=== PATIENT | male | born 1985 | race African-American/Black ===

== ENCOUNTER 2016-10-24 05:52 | Emergency (ER) | payer SELFPAY ==
[~2016-10-24] VITALS: Ht 177.8 cm; Wt 79.0 kg
[2016-10-24 05:54] VITALS: BP 117/69
[2016-10-24] MEDS ORDERED: TETANUS, DIPHTHERIA, PERTUSSIS VAC/PF 0.5ML (>7YR OLD) IM ONE (07:45)
[2016-10-24] MEDS ORDERED: BACITRACIN ZINC OINT UDPKT TOP ONE (09:15)
== END 2016-10-24 10:37 | disposition home or self-care (01) ==
LOC: ER 05:52
DX: S01.21XA Laceration without foreign body of nose, initial encounter (principal); S61.210A Laceration without foreign body of right index finger without damage to nail, initial encounter; Y04.2XXA Assault by strike against or bumped into by another person, initial encounter; Y93.89 Activity, other specified; Y92.89 Other specified places as the place of occurrence of the external cause; Y99.8 Other external cause status
CPT/HCPCS: 12011; 90471; 90715; 99283

== ENCOUNTER 2019-12-04 07:10 | Emergency (ER) | payer BC ==
[~2019-12-04] VITALS: Ht 177.8 cm; Wt 79.0 kg
[2019-12-04] MEDS ORDERED: AZITHROMYCIN 500 MG TABLET PO ONE (08:00)
[2019-12-04] MEDS ORDERED: CEFTRIAXONE SODIUM 250 MG/VIAL IM ONE (08:00)
[2019-12-04 08:29] LABS: CLARITY URINE CLOUDY (CLEAR); COLOR URINE YELLOW (YELLOW); KETONES URINE TRACE (NEGATIVE); LEUKOCYTE ESTERASE URINE 3+ (NEGATIVE); NITRITE URINE NEGATIVE (NEGATIVE); OCCULT BLOOD URINE 1+ (NEGATIVE); PROTEIN URINE 1+ (NEGATIVE)
[2019-12-04 09:34] VITALS: BP 125/60
[2019-12-07 04:11] LABS: NEISSERIA GONORRHOEAE NAA Positive (Negative)
== END 2019-12-04 09:35 | disposition home or self-care (01) ==
LOC: ER 07:44
DX: N34.2 Other urethritis (principal); I10 Essential (primary) hypertension
CPT/HCPCS: 81003; 87086; 87491; 87591; 93005; 96372; 99284; J0696

== ENCOUNTER 2019-12-11 14:03 | Emergency (ER) | payer BC ==
[~2019-12-11] VITALS: Ht 177.8 cm; Wt 79.5 kg
[2019-12-11 14:22] VITALS: BP 116/76
== END 2019-12-11 16:25 | disposition home or self-care (01) ==
LOC: ER 14:07
DX: A54.9 Gonococcal infection, unspecified (principal); A64 Unspecified sexually transmitted disease; I10 Essential (primary) hypertension; Z98.890 Other specified postprocedural states
CPT/HCPCS: 99281

== ENCOUNTER 2020-01-08 14:51 | Emergency (ER) | payer BC ==
[~2020-01-08] VITALS: Ht 177.8 cm; Wt 79.0 kg
[2020-01-08] MEDS ORDERED: AZITHROMYCIN 500 MG TABLET PO ONE (16:00)
[2020-01-08] MEDS ORDERED: CEFTRIAXONE SODIUM 250 MG/VIAL IM ONE (16:00)
[2020-01-08] MEDS ORDERED: LIDOCAINE HCL 1% 20ML VIAL (Pyxis) INJ INFIL ONE (16:00)
[2020-01-08 16:50] VITALS: BP 118/68
[2020-01-11 04:07] LABS: NEISSERIA GONORRHOEAE NAA Negative (Negative)
== END 2020-01-08 16:50 | disposition home or self-care (01) ==
LOC: ER 14:51
DX: Z20.2 Contact with and (suspected) exposure to infections with a predominantly sexual mode of transmission (principal); I10 Essential (primary) hypertension
CPT/HCPCS: 87491; 87591; 96372; 99283; J0696; J3490

== ENCOUNTER 2020-03-17 04:37 | Emergency (ER) | payer BC ==
[~2020-03-17] VITALS: Ht 177.8 cm; Wt 77.0 kg
[2020-03-17] MEDS ORDERED: SODIUM CHLORIDE 0.9% 1,000 ML IV ONE (06:15)
[2020-03-17 06:52] LABS: BASOPHILS % 0.8 % (0.0-2.0); EOSINOPHILS % 0.6 % (0.0-5.0); HEMATOCRIT. 39.2 % (42.0-52.0); HEMOGLOBIN. 13.3 g/dL (14.0-18.0); LYMPHOCYTES % 17.3 % (20.0-50.0); MEAN CORPUSCULAR HEMOGLOBIN 30.9 pg (28.0-32.0); MEAN CORPUSCULAR VOLUME 91.3 fL (80.0-94.0); MEAN PLATELET VOLUME 7.2 fl (7.4-10.4); MONOCYTES % 10.6 % (2.0-8.0); NEUTROPHILS % 70.7 % (40.0-76.0); PLATELET 196 x1000/uL (130-400); RED CELL DISTRIBUTION WIDTH 13.1 % (11.6-14.6)
[2020-03-17 07:06] LABS: CHLORIDE 104 mEq/L (98-107); ETHANOL BLOOD < 10 mg/dL
[2020-03-17] MEDS ORDERED: LORAZEPAM 0.5MG TABLET PO ONE (07:30)
[2020-03-17 09:13] LABS: CLARITY URINE CLEAR (CLEAR); COLOR URINE YELLOW (YELLOW); KETONES URINE NEGATIVE (NEGATIVE); LEUKOCYTE ESTERASE URINE NEGATIVE (NEGATIVE); NITRITE URINE NEGATIVE (NEGATIVE); OCCULT BLOOD URINE NEGATIVE (NEGATIVE); PH URINE 6.5 (4.5-8.0); PROTEIN URINE NEGATIVE (NEGATIVE); SPECIFIC GRAVITY URINE 1.018 (1.005-1.030)
[2020-03-17 09:15] VITALS: BP 116/69
[2020-03-17 09:25] LABS: *AMPHETAMINES SCREEN URINE NEGATIVE (NEGATIVE); *BARBITURATES SCREEN URINE NEGATIVE (NEGATIVE); *BENZODIAZEPINES SCREEN URINE NEGATIVE (NEGATIVE); *COCAINE SCREEN URINE NEGATIVE (NEGATIVE); METHADONE URINE SCREEN NEGATIVE (NEGATIVE); OPIATES URINE SCREEN NEGATIVE (NEGATIVE)
[2020-03-17 09:26] LABS: CANNABINOID URINE SCREEN PRESUMTIVE POSITIVE (NEGATIVE); PHENCYCLIDINE URINE SCREEN NEGATIVE (NEGATIVE)
== END 2020-03-17 10:27 | disposition home or self-care (01) ==
LOC: ER 05:51
DX: T40.7X1A Poisoning by cannabis (derivatives), accidental (unintentional), initial encounter (principal); Y92.9 Unspecified place or not applicable
CPT/HCPCS: 36415; 71045; 80053; 80305; 80307; 80320; 80329; 81003; 85025; 93005; 96360; 96361; 99285; J7030; G0480